=== PATIENT | male | born 1990 | race Caucasian/White ===

== ENCOUNTER 2019-01-28 15:15 | Emergency (ER) | payer SELFPAY ==
[~2019-01-28] VITALS: Ht 182.9 cm; Wt 106.6 kg
--- NOTE | 2019-01-28 15:29 | NUR ---
PT BACK TO [facility] W/ S.O. AT THIS TIME.
--- NOTE | 2019-01-28 15:43 | ED Psychosocial ---
General Chief Complaint: Psych/Social Disorder Stated Complaint: PSYCH EVAL Source: patient Exam Limitations: no limitations History of Present Illness Date Seen by Provider: Jan 28, 2019 Time Seen by Provider: 15:41 Initial Comments To ER with reports of mental health needs. He states that he has been diagnosed with borderline personality disorder in the past, he has a depressed mood, not anxious, not suicidal and not homicidal. He states in the past she's been noncompliant with medication regimens but would like to get started on the medication again. He has follow-up with [facility] on Wednesday, 2 days from now. He states as long as he is occupying himself with his "addictions" (does not elaborate on what those are but certainly that it is not alcohol/substances) then he has this intrusion of negative thoughts. Timing/Duration: just prior to arrival Severity: moderate Allergies and Home Medications Patient Home Medication List Home Medication List Reviewed: Yes Review of Systems Constitutional: see HPI EENTM: see HPI Respiratory: no symptoms reported Cardiovascular: no symptoms reported Genitourinary: no symptoms reported Musculoskeletal: no symptoms reported Skin: no symptoms reported Psychiatric/Neurological: See HPI, Depressed Past [id number]-[id number]-[id number] Hx Patient Social History Alcohol Use: Occasionally Uses Recreational Drug Use: No Smoking Status: Never a Smoker Recent Foreign Travel: No Contact w/Someone Who Travel: No Recent Infectious Disease Expo: No Recent Hopitalizations: No Physical Abuse: No Sexual Abuse: No Mistreated: No Fear: No Past Medical History Surgeries: Yes (RT ANKLE REPAIR) Orthopedic Respiratory: No Cardiac: No Neurological: No Genitourinary: No Gastrointestinal: No Musculoskeletal: No Endocrine: No HEENT: No Cancer: No Psychosocial: Yes Personality Disorder Integumentary: No Blood Disorders: No Adverse Reaction/Blood Tranf: No Physical Exam Vital Signs - First Documented 01/28/19 15:19 Temp 97.0 Pulse 57 Resp 18 B/P (MAP) 124/86 (99) Pulse Ox 97 O2 Delivery Room Air Capillary Refill : Less Than 3 Seconds Height, Weight, BMI Height: 6'" Weight: 235lbs. oz. 106.446292ou; BMI Method:Stated General Appearance: WD/WN, no apparent distress HEENT: PERRL/EOMI, normal ENT inspection Respiratory: no respiratory distress, no accessory muscle use Cardiovascular: regular rate, rhythm, no murmur Neurologic/Psychiatric: alert, normal mood/affect, oriented x 3 Appearance/Memory: appropriate appearance, appropriate insight, neat, no memory impairment Behavior/Eye Contact: cooperative, good eye contact, normal speech, avoids eye contact Thoughts/Hallucinations: normal thought pattern, no apparent hallucination Skin: normal color, warm/dry Progress/Results/Core Measures Results/Orders Vital Signs/I&O 01/28/19 15:19 Temp 97.0 Pulse 57 Resp 18 B/P (MAP) 124/86 (99) Pulse Ox 97 O2 Delivery Room Air Blood Pressure Mean: 99 Departure Communication (Admissions) I spoke with Dr. Lopez from psychiatry at [facility] and would recommend starting on an SSRI. Impression Primary Impression: Borderline personality disorder Additional Impression: Depression Disposition: 01 HOME, SELF-CARE Condition: Stable Departure-Patient Inst. Decision time for Depature: 15:51 Referrals: NO,LOCAL PHYSICIAN (PCP/Family) Primary Care Physician Patient Instructions: Borderline Personality Disorder, Depression Add. Discharge Instructions: 1. Be mindful it may take 2-3 weeks to notice improvement in symptoms after starting this medication. Also side effects will be most pronounced during that time. Keep her appointment with mental health on Wednesday. Start the medication today. All discharge instructions reviewed with patient and/or family. Voiced understanding. Scripts Escitalopram Oxalate (Lexapro) 10 Mg Tablet 10 MG PO DAILY, #30 TAB Prov: ALIDA DA SILVA APRN 01/28/19 ALIDA DA SILVA APRN Jan 28, 2019 15:43
[2019-01-28] MEDS ORDERED: ESCI10TA PO (15:53)
[2019-01-28 15:59] VITALS: BP 0/0
== END 2019-01-28 15:59 | disposition home or self-care (01) ==
LOC: ER 15:16
DX: F60.3 Borderline personality disorder (principal); F32.9 Major depressive disorder, single episode, unspecified; Z91.14 Patient's other noncompliance with medication regimen
CPT/HCPCS: 99283